=== PATIENT | female | born 1945 | race African-American/Black ===

== ENCOUNTER 2017-08-09 13:37 | Inpatient (IN) | payer MEDICARE, MEDICAID ==
[2017-08-09] MEDS ORDERED: ISOVUE-370 76%-LOCM 1 ML ONE (14:07)
[2017-08-09] MEDS ORDERED: hydrALAZINE 20 MG/ML VIAL ONE ×2 (14:13→17:33)
[2017-08-09] MEDS ORDERED: Ondansetron HCl/PF 4 MG/2 ML Vial ONE (14:13)
[2017-08-09 14:35] LABS: #Eosinphils 0.3 thou/uL (0.0-0.7); #Lymphocytes 3.1 thou/uL (1.20-3.40); #Monocytes 0.7 thou/uL (0.11-0.59); #Neutrophils 4.7 thou/uL (1.40-6.50); %Basophils 0.5 % (0.0-1.0); %Eosinophils 3.3 % (0.0-10.0); %Monocytes 7.9 % (0.0-10.0); Mean Platelet Volume 9.9 fL (7.4-10.4); Red Blood Cell (RBC) Count 4.77 mill/uL (4.20-5.40); White Blood Cell (WBC) Count 8.8 thou/uL (4.8-10.8)
[2017-08-09 14:38] LABS: PTT 25.2 SEC (22.9-36.1); Prothrombin Time 12.7 SEC (12.0-14.7)
[2017-08-09 14:54] LABS: ALT (SGPT) 13 U/L (8-55); AST (SGOT) 24 U/L (5-34); Alkaline Phosphatase 120 U/L (40-150); Anion Gap 11 mmol/L (10-20); BUN (Urea Nitrogen) 10 mg/dL (9.8-20.1); Bilirubin, Total 0.3 mg/dL (0.2-1.2); CK (CPK) 76 U/L (29-168); Calc. Creatinine Clearance 0 mL/min (70-130); Calcium 9.5 mg/dL (7.8-10.44); Carbon Dioxide 29 mmol/L (23-31); Chloride 105 mmol/L (98-107); Estimated GFR-MDRD 72; Globulin 4.1 g/dL (2.4-3.5); Protein, Total 7.5 g/dL (6.0-8.3)
[2017-08-09 14:57] LABS: Troponin I 0.022 ng/mL (< 0.028)
[2017-08-09] MEDS ORDERED: Acetaminophen 500 MG TAB ONE (15:17)
--- NOTE | 2017-08-09 15:31 | RAD ---
PORTABLE CHEST: 08/09/17 HISTORY: Cold and cough. COMPARISON: 12/27/15 study. Heart size is enlarged. Chronic appearing interstitial lung changes are seen. No focal infiltrates. IMPRESSION: Cardiomegaly with some chronic interstitial change. POS: [facility]
--- NOTE | 2017-08-09 16:07 | CT ---
CT ANGIO OF CHEST PERFORMED WITH INTRAVENOUS CONTRAST ENHANCEMENT WITH 3D RECONSTRUCTIONS: 08/09/17 HISTORY: Hemoptysis and dyspnea. COMPARISON: CT abdomen examination of 12/26/14. There is some interstitial change in the lingula along the left heart border which could represent so me developing infiltrate or scar. There is some tiny 3 to 4 mm more peripheral pulmonary nodules whic h are somewhat nonspecific in appearance. No pleural effusions. There is mild mediastinal adenopathy. There are right peritracheal and aorticopulmonary window nodes. Some of the right peritracheal nodes are 9 to 10 mm in short axis dimension. There is some minimal s ubcarinal adenopathy and small bilateral hilar lymph nodes. No significant axillary adenopathy. The thoracic aorta is normal in caliber,. There is good pulmonary artery opacification. There is no C T evidence for pulmonary embolus. The visualized liver parenchyma shows no focal abnormalities. Right and left adrenal glands are leti l in appearance. IMPRESSION: 1. Linear parenchymal change within the lingula. Not definitely seen on the prior CT abdomen exa mination. Suggests possibly some infiltrative change. 2. Mild mediastinal and hilar adenopathy. These could potentially be reactive nodes. This findin g probably warrants followup to exclude entity such as lymphoma. 3. Tiny 3 to 4 mm peripheral pulmonary nodules. This is not a typical appearance of metastatic d isease or multifocal infiltrate. Would suggest three month followup for reassessment of these finding s. 4. Incidental note is made of a small hiatal hernia. POS: [facility]
[2017-08-09] MEDS ORDERED: Furosemide 40 MG/4 ML VIAL ONE (17:01)
[2017-08-09] MEDS ORDERED: Ondansetron ODT 4 MG TAB SL PRN (18:32)
[2017-08-09] MEDS ORDERED: Ondansetron HCl/PF 4 MG/2 ML Vial IVP PRN (18:32)
[2017-08-09] MEDS ORDERED: Sodium Chloride 0.9% 1,000 ML IV SCH ×2 (18:32→18:52)
[2017-08-09] MEDS ORDERED: Bisacodyl 5 MG TAB PO PRN (18:52)
[2017-08-09] MEDS ORDERED: Zolpidem Tartrate 5 MG TAB PO PRN (18:52)
[2017-08-09] MEDS: Famotidine 20 MG TAB PO SCH (20:06)
[2017-08-09] MEDS: Nicotine 21 MG PATCH TD SCH (20:06)
[2017-08-09] MEDS: Acetaminophen 325 MG TAB PO PRN (20:51)
[2017-08-09] MEDS: cloNIDine 0.1 MG TAB PO PRN (20:51)
[2017-08-09 21:42] VITALS: BMI 28.6
[2017-08-10] MEDS ORDERED: cloNIDine 0.1 MG TAB PO SCH (00:01)
[2017-08-10 05:00] LABS: Bilirubin Negative (Negative); Blood, Urine Negative (Negative); Glucose, Urine (Dipstick) Negative (Negative); Ketone, Urine Negative (Negative); Nitrite Negative (Negative); Protein, Urine (Dipstick) 30 mg/dL (Neg-Trace); Urobilinogen 0.2 mg/dL (0.2-1.0)
[2017-08-10 05:08] LABS: Bacteria/HPF None Seen HPF (None Seen); RBC/HPF 0-3 HPF (0-3); Renal Epithelial None Seen HPF (0-3); Squamous Epithelial 0-3 HPF (0-3); Transitional Epithelial NONE SEEN HPF (0-3); WBC/HPF 0-3 HPF (0-3); Yeast-All Forms None Seen HPF (None Seen)
[2017-08-10 05:09] LABS: Hyaline Casts/LPF NONE SEEN LPF (0-3 Hyaline); Oval Fat Bodies/HPF None Seen HPF (None Seen); Sperm/HPF None Seen HPF (None Seen); Trichomonas/HPF None Seen HPF (None Seen)
--- NOTE | 2017-08-10 06:42 | HP ---
HISTORY OF PRESENT ILLNESS: Ms. Saunders is 72-year-old black woman who came to this facility earlier today with complaint of coughing up blood and she claimed that this problem started this morning. S he denies any associated fever. Denies any chest pain. Denies any weight loss. She is being admitt ed for management. PAST MEDICAL HISTORY: Remarkable for hypertension. She denies heart disease, denies previous histor y of chronic lung disease. Denies liver disease. PAST SURGICAL HISTORY: Remarkable for hysterectomy and also she had a right eye surgery as a child d ue to . ALLERGIES: PENICILLIN. SOCIAL HISTORY: She has a [id number] history of cigarette smoking. She denies ETOH abuse. She de nies drug abuse. FAMILY HISTORY: Reviewed and is not contributory. HOME MEDICATIONS: To be identified. REVIEW OF SYSTEMS: Constitutional: She denies any fever. Denies any weakness. HEENT: She denies any headache. Denie s ocular pain. No earache. No rhinorrhea. No sore throat. Neck: No neck pain, no neck stiffness. Cardiovascular: No shortness of breath, no chest pain. Pulmonary: Admits to productive cough wit h bloody sputum. Gastrointestinal: No nausea, no vomiting, no diarrhea, no abdominal pain. Genitou rinary: No dysuria, no hematuria. Endocrinology: No heat or cold intolerance. No polyuria, polydi psia or polyphagia. Musculoskeletal: No arthritis. Skin: No rash, no itching. Allergies: No hay fever. Hematology: No ecchymosis. Lymphatic: No palpable lymphadenopathy. No painful lymphadenop athy. Psychiatric: No anxiety, no depression. Neurologic: No seizure. PHYSICAL EXAMINATION: At the current time. GENERAL: She is alert, oriented, in no distress. VITAL SIGNS: Temperature of 98.2, pulse rate 69, respiratory rate 20, blood pressure 196/69. HEENT: Head is normocephalic and atraumatic. Both of her pupils are equal, reactive. Ears and nose leti l. Oral mucosa is moist. Pharyngeal area is clear. NECK: Supple. There is no distention of the jugular vein. No lymphadenopathy felt. Thyroid gland not palpable. There is no carotid bruit. CHEST: Symmetrical with regular S1, S2. LUNGS: Clear. ABDOMEN: Soft. Bowel sounds are heard. We could not appreciate any organomegaly. There is no foca l area of tenderness. EXTREMITIES: Limbs show no edema. NEUROLOGIC: She moves all extremities. LABORATORY DATA: CBC showed WBC of 8.8, hemoglobin of 14.6, hematocrit of 47, MCV of 98.4, platelet 196. PT was noticed to be 12.7, PTT 25.2. Chemistry and electrolytes show a sodium of 141, potassiu m of 4, chloride 105, CO2 of 29, BUN 10, creatinine 0.93. Glucose 76, calcium 9.5, total bilirubin 0 .3, AST 24, ALT 13, alkaline phosphatase 120. CPK 76, troponin 0.022. BNP 1300 and 73.7, serum prot ein 7.5, albumin 3.4, globulin 4.1. Chest x-ray was reported to show cardiomegaly with some chronic interstitial changes. Chest CT was reported to show linear parenchymal change within the lingula. T here is mild mediastinal and hilar adenopathy and there is a tiny 3-4 mm peripheral pulmonary nodule. ASSESSMENT AND PLAN: This is a 72-year-old black woman with hypertension, chronic smoker, who came i n with bloody sputum. There is no associated chest pain. There is no weight loss. Chest CT shows s mall 3-5 peripheral pulmonary nodule. The patient is being admitted to medical floor. Pulmonary is consulted. Please see orders.
[2017-08-10 07:51] LABS: Hematocrit 39.5 % (36.0-47.0); Mean Platelet Volume 10.1 fL (7.4-10.4); Neutrophil 61 % (42-75); White Blood Cell (WBC) Count 8.5 thou/uL (4.8-10.8)
[2017-08-10] MEDS: Famotidine 20 MG TAB PO SCH ×2 (07:52→20:28)
[2017-08-10] MEDS ORDERED: Mag-Al 1200 mg/1200 mg/30 ML UDCUP PO PRN (07:55)
[2017-08-10] MEDS ORDERED: Loratadine 10 MG TAB PO PRN (07:55)
[2017-08-10] MEDS ORDERED: hydrALAZINE 20 MG/ML VIAL SLOW IVP PRN (07:55)
[2017-08-10] MEDS ORDERED: Milk Of Magnesia 30 ML UDCUP PO PRN (07:55)
[2017-08-10] MEDS ORDERED: Ondansetron HCl/PF 4 MG/2 ML Vial IVP PRN (07:55)
[2017-08-10] MEDS ORDERED: Benzonatate 100 MG CAP PO PRN (07:55)
[2017-08-10] MEDS ORDERED: HYDROcodone/Acetaminophen 5/325 mg Tablet PO PRN (07:55)
[2017-08-10] MEDS ORDERED: Diabetic Tussin 200 MG/10 ML UDCUP PO PRN (07:55)
[2017-08-10] MEDS ORDERED: Artificial Tears 18 DROP/0.9 ML EA EYE PRN (07:55)
[2017-08-10] MEDS ORDERED: Eucerin (Mineral Oil/Petrolatum,White) 30 gm Jar TOP PRN (07:55)
[2017-08-10] MEDS ORDERED: Sodium Chloride 0.65% Nasal 44 ML BOT EA NARE PRN (07:55)
[2017-08-10] MEDS ORDERED: Ondansetron ODT 4 MG TAB PO PRN (07:55)
[2017-08-10] MEDS ORDERED: Loperamide HCl 2 MG CAP PO PRN (07:55)
[2017-08-10] MEDS: Amlodipine 10 MG TAB PO SCH (08:53)
[2017-08-10] MEDS: Hydrochlorothiazide 25 MG TAB PO SCH (08:53)
[2017-08-10] MEDS: buPROPion HCl 75 MG TAB PO SCH ×2 (08:53→20:27)
[2017-08-10] MEDS: Valsartan 80 MG TAB PO SCH (08:54)
--- NOTE | 2017-08-10 10:13 | PDOC.PN ---
- Subjective Encounter Start Date: 08/10/17 Encounter Start Time: 07:30 -: old records requested/rev Patient seen and examined. No new complaints. No overnight events, no fever, has cough, no hemoptysis - Objective Resuscitation Status: Resuscitation Status FULL:Full Resuscitation MAR Reviewed: Yes Vital Signs & Weight: Vital Signs (12 hours) Temp Pulse Resp BP BP Pulse Ox 08/10/17 08:53 55 L 08/10/17 07:49 98.3 F 55 L 16 165/73 H 95 08/10/17 04:00 98.4 F 64 18 173/76 H 94 L 08/10/17 00:28 182/76 H 08/09/17 23:23 98.2 F 71 20 182/76 H 93 L Weight Weight 6.286 oz I&O: 08/09/17 08/10/17 08/11/17 06:59 06:59 06:59 Intake Total 720 Output Total 600 Balance 120 Result Diagrams: 08/10/17 04:51 08/09/17 14:19 Radiology Reviewed by me: Yes (CTA) EKG Reviewed by me: Yes (NSR) Phys Exam - Physical Examination Constitutional: NAD HEENT: PERRLA, moist MMs, sclera anicteric Neck: no JVD, supple Respiratory: no wheezing, no rales, no rhonchi Cardiovascular: RRR, no significant murmur, no rub Gastrointestinal: soft, non-tender, no distention, positive bowel sounds Musculoskeletal: no edema, pulses present Neurological: non-focal, normal sensation, moves all 4 limbs Psychiatric: normal affect, A&O x 3 Skin: no rash, normal turgor Dx/Plan (1) Elevated brain natriuretic peptide (BNP) level Code(s): R79.89 - OTHER SPECIFIED ABNORMAL FINDINGS OF BLOOD CHEMISTRY Status : Acute (2) Hemoptysis Code(s): R04.2 - HEMOPTYSIS Status: Acute (3) Hilar lymphadenopathy Code(s): R59.0 - LOCALIZED ENLARGED LYMPH NODES Status: Acute (4) Lingular pneumonia Code(s): J18.9 - PNEUMONIA, UNSPECIFIED ORGANISM Status: Acute (5) Mediastinal lymphadenopathy Code(s): R59.0 - LOCALIZED ENLARGED LYMPH NODES Status: Acute (6) Pulmonary nodule Code(s): R91.1 - SOLITARY PULMONARY NODULE Status: Acute (7) Anxiety and depression Code(s): F41.8 - OTHER SPECIFIED ANXIETY DISORDERS Status: Chronic (8) Hypertension Code(s): I10 - ESSENTIAL (PRIMARY) HYPERTENSION Status: Chronic (9) Tobacco abuse Code(s): Z72.0 - TOBACCO USE Status: Chronic - Plan cont current plan of care, continue antibiotics * will add levaquin daily * pt's current presentation is likley due to pneumonia and or bornchitis * will need repeat imaging after discharge * pulmonary consulted * counselled to avoid smoking * medication reviewed as below * symptomatic treatment * will send flow cytometry and LDH tomorrow. * will get echo for high bnp * home medication reconciled Review of Systems - Review of Systems Constitutional: negative: Fever, Chills, Sweats, Weakness, Malaise, Other Eyes: negative: Pain, Vision Change, Conjunctivae Inflammation, Eyelid Inflammation, Redness, Other ENT: negative: Ear Pain, Ear Discharge, Nose Pain, Nose Discharge, Nose Congestion, Mouth Pain, Mouth Swelling, Throat Pain, Throat Swelling, Other Respiratory: Cough, Sputum. negative: Dry, Shortness of Breath, Hemoptysis, SOB with Excertion, Pleuritic Pain, Wheezing Cardiovascular: negative: Chest Pain, Palpitations, Orthopnea, Paroxysmal Noc. Dyspnea, Edema, Light Headedness, Other Gastrointestinal: negative: Nausea, Vomiting, Abdominal Pain, Diarrhea, Constipation, Melena, Hematochezia, Other Genitourinary: negative: Dysuria, Frequency, Incontinence, Hematuria, Retention , Other Musculoskeletal: negative: Neck Pain, Shoulder Pain, Arm Pain, Back Pain, Hand Pain, Leg Pain, Foot Pain, Other Skin: negative: Rash, Lesions, Mike, Bruising, Other - Medications/Allergies Allergies/Adverse Reactions: Allergies Allergy/AdvReac Type Severity Reaction Status Date / Time Penicillins Allergy Verified 08/10/17 03:26 Medications: Current Medications Acetaminophen (Tylenol) 650 mg PO Q4H PRN PRN Reason: Headache/Fever or Pain Last Admin: 08/09/17 20:51 Dose: 650 mg Hydrocodone Bitart/Acetaminophen ([place] 5/325) 1 tab PO Q4H PRN PRN Reason: Moderate Pain (4-6) Al Hydroxide/Mg Hydroxide (Maalox) 15 ml PO Q4H PRN PRN Reason: Heartburn or Indigestion Amlodipine Besylate (Norvasc) 10 mg PO DAILY [facility] Last Admin: 08/10/17 08:53 Dose: 10 mg Artificial Tears (Tears Naturale) 0 drop EA EYE PRN PRN PRN Reason: Dry Eyes Benzonatate (Tessalon) 100 mg PO Q4H PRN PRN Reason: Cough Bisacodyl (Dulcolax) 10 mg PO DAILYPRN PRN PRN Reason: Constipation Bupropion HCl (Wellbutrin) 75 mg PO BID [facility] Last Admin: 08/10/17 08:53 Dose: 75 mg Clonidine (Catapres) 0.1 mg PO Q6H PRN PRN Reason: SBP GREATER THAN 160 Last Admin: 08/09/17 20:51 Dose: 0.1 mg Famotidine (Pepcid) 20 mg PO BID [facility] Last Admin: 08/10/17 07:52 Dose: 20 mg Guaifenesin (Robitussin Sf) 200 mg PO Q4H PRN PRN Reason: Cough Hydralazine HCl (Apresoline) 10 mg SLOW IVP Q4H PRN PRN Reason: Systolic BP > 180 Hydrochlorothiazide (Hydrochlorothiazide) 25 mg PO DAILY [facility] Last Admin: 08/10/17 08:53 Dose: 25 mg Levofloxacin 500 mg/ Device 100 mls @ 100 mls/hr IVPB 0800 [facility] Last Admin: 08/10/17 08:52 Dose: 100 mls Loperamide HCl (Imodium) 2 mg PO PRN PRN PRN Reason: Diarrhea/Loose Stools Loratadine (Claritin) 10 mg PO DAILYPRN PRN PRN Reason: Sinus Symptoms Magnesium Hydroxide (Milk Of Magnesium) 30 ml PO DAILYPRN PRN PRN Reason: Constipation Metoprolol Succinate (Toprol Xl) 50 mg PO BID [facility] Last Admin: 08/10/17 08:53 Dose: 50 mg Mineral Oil/White Petrolatum (Eucerin Cream) 0 gm TOP BIDPRN PRN PRN Reason: Dry Skin Nicotine (Nicoderm Patch) 21 mg TD Q24HR [facility] Last Admin: 08/09/17 20:06 Dose: 21 mg Ondansetron HCl (Zofran Odt) 4 mg PO Q6H PRN PRN Reason: Nausea/Vomiting Ondansetron HCl (Zofran) 4 mg IVP Q6H PRN PRN Reason: Nausea/Vomiting Sodium Chloride ([place] Nasal [place] 0.65%) 0 ml EA NARE QIDPRN PRN PRN Reason: Nasal Congestion Valsartan (Diovan) 320 mg PO DAILY [facility] Last Admin: 08/10/17 08:54 Dose: 320 mg Zolpidem Tartrate (Ambien) 5 mg PO HSPRN PRN PRN Reason: Insomnia
--- NOTE | 2017-08-10 18:16 | CON ---
DATE OF CONSULTATION: 08/10/2017 Zena Saunders is a 72-year-old female who seeks care at the [facility], presented yesterday wi th a couple of days history of cold associated with some blood-tinged sputum. She says that total am ount of blood that she has coughed up appears to be about 3 to 5 tablespoon. She has been smoking half pack a day for 50 years with previous history of pneumonia. No history of TB or asthma. On most days, she is able to walk several blocks without getting markedly short of ant[place] ath. PAST MEDICAL HISTORY: Pertinent for hypertension. PAST SURGICAL HISTORY: Includes hysterectomy. MEDICATIONS FROM HOME: Includes Wellbutrin 75, hydrochlorothiazide, metoprolol 50, amlodipine 10, va lsartan. ALLERGIES: PENICILLIN. SOCIAL HISTORY: Housewife. REVIEW OF SYSTEMS: 10-point negative. PHYSICAL EXAMINATION: VITAL SIGNS: Pulse 55, temperature 98, blood pressure 165/73. CHEST: No crackles or wheezing. CARDIAC: Normal S1, S2. LABORATORY DATA: Chest x-ray was reviewed based on bibasilar scarring, particularly in the lingula w hich has been present at least over a year, last x-ray taken in 2016. CAT scan of the chest was done which shows nonspecific lymph nodes, once again mainly what I see is scarring, maybe bronchiectatic changes in the lingual area. Mild hilar adenopathy of unknown significance, small pulmonary nodule, difficult to even assess, 3 mm. IMPRESSION: 1. Hemoptysis secondary to bronchitis, tobacco abuse, abdominal CT of the chest, lymph nodes of unkn own significance, too small to make an assumption. 3. Probably bronchiectasis in the lingula. 4. Hypertension. PLAN: From the pulmonary stand point of view, at this stage, empiric antibiotics Incidentally, BNP was markedly elevated at 1373. Will get an echo to assess LV function. Unless hemoptysis is signifi cant or persistent, no further workup. If it persists, we will perform a diagnostic bronchoscopy.
[2017-08-10] MEDS: Nicotine 21 MG PATCH TD SCH (18:35)
[2017-08-10] MEDS: cloNIDine 0.1 MG TAB PO PRN (20:33)
[2017-08-10] MEDS: Acetaminophen 325 MG TAB PO PRN (21:35)
[2017-08-10] MEDS ORDERED: Nitroglycerin 2% Ointment 1 INCH/1 GM Packet TOP SCH (23:59)
[2017-08-11] MEDS ORDERED: Nitroglycerin 2% Ointment 1 INCH/1 GM Packet TOP SCH (06:00)
[2017-08-11] MEDS: Valsartan 80 MG TAB PO SCH (08:55)
[2017-08-11] MEDS: buPROPion HCl 75 MG TAB PO SCH (08:55)
[2017-08-11] MEDS: Amlodipine 10 MG TAB PO SCH (08:55)
[2017-08-11] MEDS: Famotidine 20 MG TAB PO SCH (08:55)
[2017-08-11] MEDS: Hydrochlorothiazide 25 MG TAB PO SCH (08:55)
--- NOTE | 2017-08-11 10:09 | PDOC.PN ---
- Subjective Encounter Start Date: 08/11/17 Encounter Start Time: 08:00 Patient seen and examined. No new complaints. No overnight events, today her BP is high - Objective Resuscitation Status: Resuscitation Status FULL:Full Resuscitation MAR Reviewed: Yes Vital Signs & Weight: Vital Signs (12 hours) Temp Pulse Resp BP BP Pulse Ox 08/11/17 09:27 182/79 H 08/11/17 08:55 51 L 195/91 H 08/11/17 08:50 98.7 F 51 L 18 192/89 H 96 08/11/17 04:00 97.4 F L 53 L 18 172/74 H 94 L 08/10/17 23:43 46 L 178/77 H Weight Weight 178 lb 12.8 oz I&O: 08/10/17 08/11/17 08/12/17 06:59 06:59 06:59 Intake Total 720 1080 Output Total 600 1200 Balance 120 -120 Result Diagrams: 08/10/17 04:51 08/09/17 14:19 Radiology Reviewed by me: Yes (echo) EKG Reviewed by me: Yes (sinus bradycardia) Phys Exam - Physical Examination Constitutional: NAD HEENT: PERRLA, moist MMs, sclera anicteric Neck: no JVD, supple Respiratory: no wheezing, no rales, no rhonchi Cardiovascular: RRR, no significant murmur, no rub Gastrointestinal: soft, non-tender, no distention, positive bowel sounds Musculoskeletal: no edema, pulses present Neurological: non-focal, normal sensation, moves all 4 limbs Psychiatric: normal affect, A&O x 3 Skin: no rash, normal turgor Dx/Plan (1) Elevated brain natriuretic peptide (BNP) level Code(s): R79.89 - OTHER SPECIFIED ABNORMAL FINDINGS OF BLOOD CHEMISTRY Status : Acute (2) Hemoptysis Code(s): R04.2 - HEMOPTYSIS Status: Acute (3) Hilar lymphadenopathy Code(s): R59.0 - LOCALIZED ENLARGED LYMPH NODES Status: Acute (4) Lingular pneumonia Code(s): J18.9 - PNEUMONIA, UNSPECIFIED ORGANISM Status: Acute (5) Mediastinal lymphadenopathy Code(s): R59.0 - LOCALIZED ENLARGED LYMPH NODES Status: Acute (6) Pulmonary nodule Code(s): R91.1 - SOLITARY PULMONARY NODULE Status: Acute (7) Anxiety and depression Code(s): F41.8 - OTHER SPECIFIED ANXIETY DISORDERS Status: Chronic (8) Hypertension Code(s): I10 - ESSENTIAL (PRIMARY) HYPERTENSION Status: Chronic (9) Tobacco abuse Code(s): Z72.0 - TOBACCO USE Status: Chronic - Plan cont current plan of care, continue antibiotics * will add hydralazine 25 mg po qid * Metoprolol discontinued for bradycardia * will change levaquin PO * if BP still not well controlled then amlodipine can be changed to procardia * medication reviewed as below * symptomatic treatment * echo is normal. * will adjust BP meds today Review of Systems - Review of Systems ENT: negative: Ear Pain, Ear Discharge, Nose Pain, Nose Discharge, Nose Congestion, Mouth Pain, Mouth Swelling, Throat Pain, Throat Swelling, Other Respiratory: negative: Cough, Dry, Shortness of Breath, Hemoptysis, SOB with Excertion, Pleuritic Pain, Sputum, Wheezing Cardiovascular: negative: Chest Pain, Palpitations, Orthopnea, Paroxysmal Noc. Dyspnea, Edema, Light Headedness, Other Gastrointestinal: negative: Nausea, Vomiting, Abdominal Pain, Diarrhea, Constipation, Melena, Hematochezia, Other Genitourinary: negative: Dysuria, Frequency, Incontinence, Hematuria, Retention , Other Musculoskeletal: negative: Neck Pain, Shoulder Pain, Arm Pain, Back Pain, Hand Pain, Leg Pain, Foot Pain, Other Skin: negative: Rash, Lesions, Mike, Bruising, Other - Medications/Allergies Allergies/Adverse Reactions: Allergies Allergy/AdvReac Type Severity Reaction Status Date / Time Penicillins Allergy Verified 08/10/17 03:26 Medications: Current Medications Acetaminophen (Tylenol) 650 mg PO Q4H PRN PRN Reason: Headache/Fever or Pain Last Admin: 08/10/17 21:35 Dose: 650 mg Hydrocodone Bitart/Acetaminophen ([place] 5/325) 1 tab PO Q4H PRN PRN Reason: Moderate Pain (4-6) Al Hydroxide/Mg Hydroxide (Maalox) 15 ml PO Q4H PRN PRN Reason: Heartburn or Indigestion Amlodipine Besylate (Norvasc) 10 mg PO DAILY [facility] Last Admin: 08/11/17 08:55 Dose: 10 mg Artificial Tears (Tears Naturale) 0 drop EA EYE PRN PRN PRN Reason: Dry Eyes Benzonatate (Tessalon) 100 mg PO Q4H PRN PRN Reason: Cough Bisacodyl (Dulcolax) 10 mg PO DAILYPRN PRN PRN Reason: Constipation Bupropion HCl (Wellbutrin) 75 mg PO BID [facility] Last Admin: 08/11/17 08:55 Dose: 75 mg Clonidine (Catapres) 0.1 mg PO Q6H PRN PRN Reason: SBP GREATER THAN 160 Last Admin: 08/10/17 20:33 Dose: 0.1 mg Famotidine (Pepcid) 20 mg PO BID [facility] Last Admin: 08/11/17 08:55 Dose: 20 mg Guaifenesin (Robitussin Sf) 200 mg PO Q4H PRN PRN Reason: Cough Hydralazine HCl (Apresoline) 10 mg SLOW IVP Q4H PRN PRN Reason: Systolic BP > 180 Hydrochlorothiazide (Hydrochlorothiazide) 25 mg PO DAILY [facility] Last Admin: 08/11/17 08:55 Dose: 25 mg Levofloxacin (Levaquin) 500 mg PO 0600 [facility] Stop: 08/16/17 06:01 Last Admin: 08/11/17 05:17 Dose: 500 mg Loperamide HCl (Imodium) 2 mg PO PRN PRN PRN Reason: Diarrhea/Loose Stools Loratadine (Claritin) 10 mg PO DAILYPRN PRN PRN Reason: Sinus Symptoms Magnesium Hydroxide (Milk Of Magnesium) 30 ml PO DAILYPRN PRN PRN Reason: Constipation Mineral Oil/White Petrolatum (Eucerin Cream) 0 gm TOP BIDPRN PRN PRN Reason: Dry Skin Nicotine (Nicoderm Patch) 21 mg TD Q24HR [facility] Last Admin: 08/10/17 18:35 Dose: 21 mg Nitroglycerin (Nitro-Bid 2% Ointment) 1 inch TOP Q6HR [facility] Last Admin: 08/11/17 05:17 Dose: 1 inch Ondansetron HCl (Zofran Odt) 4 mg PO Q6H PRN PRN Reason: Nausea/Vomiting Ondansetron HCl (Zofran) 4 mg IVP Q6H PRN PRN Reason: Nausea/Vomiting Sodium Chloride ([place] Nasal [place] 0.65%) 0 ml EA NARE QIDPRN PRN PRN Reason: Nasal Congestion Valsartan (Diovan) 320 mg PO DAILY [facility] Last Admin: 08/11/17 08:55 Dose: 320 mg Zolpidem Tartrate (Ambien) 5 mg PO HSPRN PRN PRN Reason: Insomnia
--- NOTE | 2017-08-11 10:51 | PQF ---
CLINICAL DOCUMENTATION IMPROVEMENT CLARIFICATION FORM: ICD-10 Updated PLEASE DO AN ADDENDUM TO THE PROGRESS NOTE WITH ANY DOCUMENTATION UPDATES OR ADDITIONS AND CARRY THROUGH TO DC SUMMARY. THANK YOU. DATE: 08/11/17 ATTN : DR. BARRIOS Please exercise your independent, professional judgment in responding to the clarification form. Clinical indicators are provided on the bottom of this form for your review Please check appropriate box(s): [ ] Bronchitis [ ] Bronchiectasis [ x ] Simple Pneumonia (community acquired) [ x ] Other diagnosis _lingular pneumonia [ ] Unable to determine In addition, please specify: Present on Admission (POA): [ x ] Yes [ ] No [ ] Unable to determine For continuity of documentation, please document condition throughout progress notes and discharge summary. Thank You. CLINICAL INDICATORS - SIGNS / SYMPTOMS / LABS H&P 08/10: "LINGULAR PNEUMONIA" CONSULTATION NOTE 08/10: "HEMOPTYSIS SECONDARY TO BRONCHITIS" "PROBABLY BRONCHIECTASIS IN THE LINGULA" RISKS: CHRONIC SMOKING TREATMENT: PULMONARY CONSULT CHEST XRAY CT OF CHEST PO LEVAQUIN (This form is maintained as a part of the permanent medical record) 2014 [email or web address]. All Rights Reserved [email or web address] Office: [phone] [facility]
--- NOTE | 2017-08-11 10:53 | PRG ---
DATE OF SERVICE: 08/11/2017 SUBJECTIVE: This morning the patient is better. No further hemoptysis. PHYSICAL EXAMINATION: VITAL SIGNS: Blood pressure 128/79, pulse 59, temperature 98, afebrile. CHEST: Chest reveals decreased breath sounds without any wheezing. CARDIAC: Normal S1, S2. ABDOMEN: Soft, no masses. IMPRESSION: 1. Hemoptysis. 2. Bronchitis. 3. Abnormal chest x-ray. PLAN: She can be discharged home with empiric antibiotics. She can follow with her primary care germaine velez. She is to refrain from smoking. She can see me in the office if she wants to in 2 weeks.
--- NOTE | 2017-08-11 11:41 | DIS ---
DATE OF ADMISSION: 08/09/2017 DATE OF DISCHARGE: 08/11/2017 PRIMARY CARE PHYSICIAN: Xi Tiwari. DISCHARGE DISPOSITION: Home. PRIMARY DISCHARGE DIAGNOSES: 1. Hemoptysis, likely due to lingular pneumonia. 2. Reactive hilar and mediastinal lymphadenopathy. 3. Pulmonary nodule. 4. Elevated BNP. SECONDARY DISCHARGE DIAGNOSES: Hypertension, anxiety and depression, tobacco abuse disorder. PRIMARY PROCEDURE/OPERATION: None. RADIOLOGICAL INVESTIGATION: Chest x-ray on admission showed cardiomegaly and interstitial changes. CT angiography was negative for PE, but it did show lingular infiltration and mild mediastinal and hi lar lymphadenopathy and 3-4 mm pulmonary nodule. Echocardiography was normal. SIGNIFICANT LABORATORY DATA: WBC 8.5, hemoglobin 12.5, platelets 179, INR 0.9. Sodium 141, creatini ne 0.93, LFT normal. Electrolytes normal. Cardiac enzymes negative. BNP 1373. Urinalysis normal. DISCHARGE MEDICATIONS: Levofloxacin 500 mg p.o. daily for 7 days, hydralazine 25 mg p.o. q.i.d., aml odipine 10 mg p.o. daily, Wellbutrin 75 mg p.o. b.i.d., hydrochlorothiazide 25 mg p.o. daily, valsart an 320 mg p.o. daily. CONTRAINDICATIONS: None. CODE STATUS: FULL CODE. INPATIENT GOVERNMENT PROFESSOR: Dr. Diaz. TEST RESULTS PENDING ON DISCHARGE: None. ALLERGIES: PENICILLIN. DISCHARGE PLAN: Post hospital, patient is advised to follow up with Dr. Diaz as instructed as well a s primary care physician. HOSPITAL COURSE: A 72-year-old female who was admitted by Dr. Toni Luu. Please see his H&P fo r further details. The patient had an episode of hemoptysis. The patient was also having cough, shelly rtness of breath, and subjective fever. The patient had chest x-ray which was unremarkable. She had CT angio which showed no evidence of PE, but it did show infiltration in lingula and also found with nonspecific hilar and mediastinal lymphadenopathy and pulmonary nodule. The patient was admitted to telemetry floor. Pulmonary group was consulted and they recommended that at this point, no further evaluation required. She was treated with levofloxacin while in hospital and on discharge we changed to p.o. Levaquin for another 5-7 days. During this hospital, patient had elevated BNP and that is why we did echocardiography, but echocardi ography came back normal. Patient does not have any symptoms of CHF at this point. The patient also had sinus bradycardia and that is why we discontinued metoprolol on her regimen and instead we start ed hydralazine for blood pressure control. I advised this patient to follow up with primary care germaine velez for further adjustment of blood pressure medication. While in hospital, we also provided coun seling to avoid smoking. The patient is seen and examined at bedside today. Please see my progress note from today for furthe r details. Overall, the patient is medically stable for discharge and Pulmonary cleared her for disc harge and she will follow up with them as an outpatient basis.
[2017-08-11] MEDS: hydrALAZINE 25 MG TAB PO SCH ×2 (11:50→16:51)
[2017-08-11] MEDS: cloNIDine 0.1 MG TAB PO PRN (15:30)
[2017-08-11 15:59] VITALS: TEMP 97.5
[2017-08-11 17:07] VITALS: BP 150/90
== END 2017-08-11 18:08 | disposition home or self-care (01) | DRG 194 ==
LOC: ERS 13:37 → 2NO 16:40
PROVIDERS: ADMIT Hospitalist; ATTEND Hospitalist
DX: J18.9 Pneumonia, unspecified organism (principal); R04.2 Hemoptysis; R00.1 Bradycardia, unspecified; R59.0 Localized enlarged lymph nodes; R91.1 Solitary pulmonary nodule; F17.210 Nicotine dependence, cigarettes, uncomplicated; I10 Essential (primary) hypertension; F41.9 Anxiety disorder, unspecified; F32.9 Major depressive disorder, single episode, unspecified; R79.89 Other specified abnormal findings of blood chemistry
CPT/HCPCS: 36415; 71010; 71275; 80053; 81001; 82550; 82553; 83615; 83880; 84484; 85007; 85025; 85027; 85610; 85730; 88184; 93005; 93306; 94640; 96374; 96375; 96376; J0360; J1940; J1956; J2405; Q0162

== ENCOUNTER 2017-11-22 15:21 | Emergency (ER) | payer MEDICAID, MEDICARE ==
--- NOTE | 2017-11-22 16:22 | RAD ---
PA AND LATERAL CHEST X-RAY 11/22/17 HISTORY: Cough and fever and chills for one week. COMPARISON: 08/09/17. FINDINGS: The cardiac silhouette is stable in size and borderline enlarged. Pulmonary vasculature is also at th e upper limits of normal. There is interstitial and patchy density seen at each lung base worrisome f or bibasilar areas of pneumonia. No pleural effusion is seen. Vascular calcifications are seen in the thoracic aorta. No other interval change. IMPRESSION: Increased bibasilar patchy and interstitial densities at the medial aspect of each lower lobe worriso me for bibasilar areas of pneumonia. Followup to complete resolution is recommended. POS: TASNE[facility]
[2017-11-22] MEDS ORDERED: Acetaminophen 500 MG TAB ONE (18:31)
== END 2017-11-22 18:34 | disposition home or self-care (01) ==
LOC: ERS 15:21
DX: J18.9 Pneumonia, unspecified organism (principal); I10 Essential (primary) hypertension
CPT/HCPCS: 71046; 94640; J7620

== ENCOUNTER 2019-05-11 09:44 | Emergency (ER) | payer MEDICARE ==
[2019-05-11] MEDS ORDERED: Ondansetron ODT 4 MG TAB ONE ×2 (10:29→10:57)
[2019-05-11] MEDS ORDERED: Dicyclomine 20 MG TAB ONE ×2 (10:29→10:57)
--- NOTE | 2019-05-11 10:56 | RAD ---
XR Chest 1 View Portable History: Chest pain Comparison: Radiograph March 04, 2019 Findings: Heart size is enlarged. Mild increased peripheral interstitial markings of the lungs. No pn eumothorax. No effusions. No acute osseous abnormality. Impression: Chronic findings. No acute intrathoracic abnormality.
--- NOTE | 2019-05-11 11:08 | ULT ---
US Gallbladder RUQ History: Right upper quadrant pain Comparison: None Findings: Real-time grayscale and color evaluation of the right upper quadrant of the abdomen was per formed. Visualized portion of the pancreas, aorta, and IVC are unremarkable. Hepatic echotexture is normal. Portal vein is patent with antegrade flow. Common bile duct measures 4 mm, normal. Gallbladder is nor mal. Right kidney measures 8.7 x 3.8 x 4.4 cm without mass, hydronephrosis, or abnormal calcifications. Impression: Unremarkable right upper quadrant ultrasound. Normal gallbladder.
[2019-05-11 11:20] LABS: #Eosinphils 0.3 thou/uL (0.0-0.7); #Lymphocytes 2.5 thou/uL (1.20-3.40); #Monocytes 0.8 thou/uL (0.11-0.59); #Neutrophils 3.8 thou/uL (1.40-6.50); %Basophils 0.6 % (0.0-1.0); %Eosinophils 4.3 % (0.0-10.0); %Lymphocytes 33.3 % (21.0-51.0); %Monocytes 10.2 % (0.0-10.0); %Neutrophils 51.6 % (42.0-75.0); Hemoglobin 13.3 g/dL (12.0-16.0); Mean Corpuscular HGB CONC 31.7 g/dL (32.0-36.0); Mean Corpuscular Hemoglobin 29.8 pg (27.0-31.0); Mean Corpuscular Volume 94.1 fL (78.0-98.0); Mean Platelet Volume 11.6 fL (7.4-10.4); Platelet Count 155 thou/uL (130-400); RBC Distribution Width 14.4 % (11.5-14.5); Red Blood Cell (RBC) Count 4.46 mill/uL (4.20-5.40); White Blood Cell (WBC) Count 7.4 thou/uL (4.8-10.8)
[2019-05-11 12:36] LABS: ALT (SGPT) 12 U/L (8-55); AST (SGOT) 18 U/L (5-34); Albumin 3.6 g/dL (3.4-4.8); Alkaline Phosphatase 122 U/L (40-150); Anion Gap 13 mmol/L (10-20); BUN (Urea Nitrogen) 17 mg/dL (9.8-20.1); Bilirubin, Total 0.3 mg/dL (0.2-1.2); Calc. Creatinine Clearance 0 mL/min (70-130); Calcium 9.3 mg/dL (7.8-10.44); Carbon Dioxide 26 mmol/L (23-31); Chloride 108 mmol/L (98-107); Estimated GFR-MDRD 66; Globulin 3.2 g/dL (2.4-3.5); Glucose 94 mg/dL (83-110); Lipase 20 U/L (8-78); Potassium 3.6 mmol/L (3.5-5.1); Protein, Total 6.8 g/dL (6.0-8.3); Sodium 143 mmol/L (136-145)
[2019-05-11 14:09] LABS: Bilirubin Negative (Negative); Blood, Urine Negative (Negative); Clarity Clear (Clear); Glucose, Urine (Dipstick) Normal (Negative); Leukocyte Negative Leu/uL (Negative); Nitrite Negative (Negative); Protein, Urine (Dipstick) Negative (Neg-Trace); Urobilinogen Normal mg/dL (Less than 2)
--- NOTE | 2019-05-11 14:19 | CT ---
CT OF THE ABDOMEN AND PELVIS WITHOUT IV CONTRAST INDICATION: Right-sided abdominal pain COMPARISON: December 27, 2015 FINDINGS: The lack of IV contrast limits evaluation of the solid organs of the abdomen and pelvis. ABDOMEN: Lung bases: Clear Liver: No focal lesion. Gallbladder: Normal appearing. Pancreas: Normal. Adrenal glands: Normal. Spleen: Normal. Kidneys: Normal. Retroperitoneum of the upper abdomen: No pathologically enlarged lymph nodes are evident. There are m oderate calcific patient's involving the abdominal pelvic vasculature. Additional findings: None. Pelvis: Small and large bowel: Normal Bladder: Normal. Rectal and perirectal soft tissues:Normal. Reproductive structures: Normal. Free fluid in pelvis: No free fluid is evident. Lymphadenopathy pelvis: No lymphadenopathy is evident. Osseous structures: No acute osseous abnormality. No destructive osteolytic or osteoblastic lesion i s identified. There is scattered degenerative and osteoarthritic changes. IMPRESSION: 1. No acute abnormality.
[2019-05-11] MEDS ORDERED: hydrALAZINE 20 MG/ML VIAL ONE (14:27)
== END 2019-05-11 15:07 | disposition home or self-care (01) ==
LOC: ERS 09:44
DX: R10.11 Right upper quadrant pain (principal); I10 Essential (primary) hypertension; F17.210 Nicotine dependence, cigarettes, uncomplicated; Z79.899 Other long term (current) drug therapy
CPT/HCPCS: 36415; 71045; 74176; 76705; 80053; 81003; 83690; 84484; 85025; 93005; 96374; J0360; Q0162

== ENCOUNTER 2019-07-21 13:02 | Outpatient (CLI) | payer MEDICARE ==
--- NOTE | 2019-07-21 14:54 | MMO ---
Bilateral MAMMO Bilat Screen [facility]. CLINICAL HISTORY: Patient is 74 years old and is seen for screening. The patient has no family history of breast cancer. The patient has no personal history of cancer. VIEWS: The views performed were: bilateral craniocaudal with tomosynthesis and bilateral mediolateral oblique with tomosynthesis. FILMS COMPARED: The present examination has been compared to prior imaging studies performed at [facility] on 03/15/2011, 12/03/2012, 12/06/2013 and 12/07/2014. This study has been interpreted with the assistance of computer-aided detection. MAMMOGRAM FINDINGS: There are scattered fibroglandular densities. There are no suspicious masses, suspicious calcifications, or new areas of architectural distortion. IMPRESSION: THERE IS NO MAMMOGRAPHIC EVIDENCE OF MALIGNANCY. A ROUTINE FOLLOW-UP MAMMOGRAM IN 1 YEAR IS RECOMMENDED. THE RESULTS OF THIS EXAM WERE SENT TO THE PATIENT. ACR BI-RADS Category 1 - Negative MAMMOGRAPHY NOTE: 1. A negative mammogram report should not delay a biopsy if a dominant of clinically suspicious mass is present. 2. Approximately 10% to 15% of breast cancers are not detected by mammography. 3. Adenosis and dense breasts may obscure an underlying neoplasm. Reported by: NAOMI LAURA MD Electonically Signed: [id number]
== END 2019-07-21 13:03 | disposition home or self-care (01) ==
LOC: BICMAMMO 13:02
PROVIDERS: ATTEND Family Medicine
DX: Z12.31 Encounter for screening mammogram for malignant neoplasm of breast (principal)
CPT/HCPCS: 77063; 77067

== ENCOUNTER 2019-10-30 00:08 | Emergency (ER) | payer MEDICARE, MEDICAID ==
[2019-10-30] MEDS ORDERED: Acetaminophen 325 MG TAB ONE ×2 (00:55→01:02)
[2019-10-30] MEDS ORDERED: Dexamethasone 4 MG TAB ONE ×2 (00:55→01:02)
== END 2019-10-30 01:27 | disposition home or self-care (01) ==
LOC: ERS 00:08
DX: J02.8 Acute pharyngitis due to other specified organisms (principal); B97.89 Other viral agents as the cause of diseases classified elsewhere; F17.210 Nicotine dependence, cigarettes, uncomplicated; I10 Essential (primary) hypertension; Z79.899 Other long term (current) drug therapy
CPT/HCPCS: 87081; 87430; 99283; J8540

== ENCOUNTER 2020-09-29 09:49 | Outpatient (CLI) | payer MEDICARE, MEDICAID ==
--- NOTE | 2020-09-29 10:20 | BD ---
EXAM: Bone densitometry using DEXA HISTORY: 75 yo female. Screening for postmenopausal osteoporosis FINDINGS: L1--bone mineral density 0.938 g/sq cm; T score -0.5 ; Z score 0.9 L2--bone mineral density 0.968 g/sq cm; T score -0.5 ; Z score 1.0 L3--bone mineral density 0.984 g/sq cm; T score -0.9 ; Z score 0.8 L4--bone mineral density 0.997 g/sq cm; T score -0.6 ; Z score 1.1 Total L1-L4--bone mineral density 0.973 g/sq cm; T score -0.7 ; Z score 0.9 Left femoral neck--bone mineral density0.703; T score -1.3 ; Z score -0.2 Total proximal left femur--bone mineral density 0.840; T score -0.8 ; Z score 0.0 The 10 year fracture risk for a major osteoporotic fracture is 4.6% and for a hip fracture is 1.1%. IMPRESSION: Osteopenia
== END 2020-09-29 09:50 | disposition home or self-care (01) ==
LOC: BICMAMMO 09:49
PROVIDERS: ATTEND Family Medicine
DX: Z13.820 Encounter for screening for osteoporosis (principal); N95.9 Unspecified menopausal and perimenopausal disorder; M85.852 Other specified disorders of bone density and structure, left thigh
CPT/HCPCS: 77080

== ENCOUNTER 2021-06-16 18:58 | Inpatient (IN) | payer MEDICARE, OTHER ==
[~2021-06-16 18:58] MED LIST: Iopamidol-370 76% 500 ML 1 ML ONE
[2021-06-16] MEDS ORDERED: Labetalol HCl 100 MG/20 ML VIAL ONE (20:13)
[2021-06-16 20:26] LABS: #Eosinphils 0.3 thou/uL (0.0-0.7); #Lymphocytes 1.8 thou/uL (1.20-3.40); #Monocytes 1.2 thou/uL (0.11-0.59); #Neutrophils 10.1 thou/uL (1.40-6.50); %Basophils 0.2 % (0.0-1.0); %Lymphocytes 13.5 % (21.0-51.0); %Monocytes 8.6 % (0.0-10.0); %Neutrophils 75.6 % (42.0-75.0); Hemoglobin 15.3 g/dL (12.0-16.0); Mean Corpuscular HGB CONC 31.9 g/dL (32.0-36.0); Mean Corpuscular Hemoglobin 31.2 pg (27.0-31.0); Mean Corpuscular Volume 97.8 fL (78.0-98.0); Mean Platelet Volume 11.3 fL (7.4-10.4); Platelet Count 176 thou/uL (130-400); RBC Distribution Width 13.5 % (11.5-14.5); White Blood Cell (WBC) Count 13.4 thou/uL (4.8-10.8)
[2021-06-16] MEDS ORDERED: Acetaminophen 500 MG TAB ONE ×2 (20:26→20:27)
[2021-06-16] MEDS ORDERED: Ibuprofen 800 MG TAB ONE (20:26)
[2021-06-16] MEDS ORDERED: Metoclopramide HCl 10 MG/2 ML VIAL ONE (20:26)
[2021-06-16] MEDS ORDERED: niCARdipine 20MG In NaCl 20 MG/200 ML BAG ONE (20:46)
[2021-06-16 20:47] LABS: ALT (SGPT) 13 U/L (8-55); AST (SGOT) 18 U/L (5-34); Albumin 3.9 g/dL (3.4-4.8); Alkaline Phosphatase 117 U/L (40-110); Anion Gap 16 mmol/L (10-20); BUN (Urea Nitrogen) 21 mg/dL (9.8-20.1); Bilirubin, Total 0.5 mg/dL (0.2-1.2); Calc. Creatinine Clearance 0 mL/min (70-130); Calcium 9.3 mg/dL (7.8-10.44); Carbon Dioxide 24 mmol/L (23-31); Chloride 105 mmol/L (98-107); Globulin 3.9 g/dL (2.4-3.5); Glucose 90 mg/dL (83-110); Potassium 4.1 mmol/L (3.5-5.1); Protein, Total 7.8 g/dL (5.8-8.1); Sodium 141 mmol/L (136-145)
[2021-06-16 22:18] LABS: Troponin I 0.013 ng/mL (< 0.028)
[2021-06-16 22:32] LABS: SARS-CoV-2 NAA Rapid Test DETECTED (NotDetected)
[2021-06-17] MEDS ORDERED: niCARdipine 20MG In NaCl 20 MG/200 ML BAG ONE (00:12)
[2021-06-17 00:51] VITALS: BMI 27.8
[2021-06-17] MEDS ORDERED: Ondansetron ODT 4 MG TAB PO PRN (01:15)
[2021-06-17] MEDS ORDERED: Ondansetron PF 4 MG/2 ML Vial IVP PRN (01:15)
[2021-06-17] MEDS ORDERED: Acetaminophen 650 MG Suppository PR PRN (01:15)
[2021-06-17 01:58] LABS: Bacteria/HPF 1+ HPF (None Seen); Bilirubin Negative (Negative); Blood, Urine Negative (Negative); Clarity Clear (Clear); Glucose, Urine (Dipstick) Normal (Negative); Ketone, Urine Negative (Negative); Leukocyte 250 Leu/uL (Negative); Nitrite 2+ (Negative); Protein, Urine (Dipstick) 10 mg/dL (Neg-Trace); RBC/HPF 0-3 HPF (0-3); Specific Gravity, Urine 1.013 (1.002-1.036); Squamous Epithelial 0-3 HPF (0-3); Urobilinogen Normal mg/dL (Less than 2); pH, Urine 5.5 (5.0-9.0)
[2021-06-17 02:54] LABS: Troponin I 0.037 ng/mL (< 0.028)
[2021-06-17] MEDS: Enoxaparin Sodium 40 MG/0.4 ML SYRINGE SC SCH ×2 (03:09→15:13)
[2021-06-17] MEDS ORDERED: Amlodipine 5 MG TAB PO SCH ×2 (04:45→09:00)
[2021-06-17] MEDS: Hydrochlorothiazide 25 MG TAB PO SCH (05:25)
[2021-06-17 06:31] LABS: #Basophils 0.1 thou/uL (0.0-0.2); #Eosinphils 0.2 thou/uL (0.0-0.7); #Lymphocytes 2.4 thou/uL (1.20-3.40); #Monocytes 1.4 thou/uL (0.11-0.59); #Neutrophils 10.3 thou/uL (1.40-6.50); %Basophils 0.7 % (0.0-1.0); %Eosinophils 1.4 % (0.0-10.0); %Lymphocytes 16.6 % (21.0-51.0); %Monocytes 9.4 % (0.0-10.0); %Neutrophils 71.8 % (42.0-75.0); Mean Corpuscular HGB CONC 30.8 g/dL (32.0-36.0); Mean Corpuscular Hemoglobin 30.3 pg (27.0-31.0); Mean Corpuscular Volume 98.4 fL (78.0-98.0); Mean Platelet Volume 10.5 fL (7.4-10.4); Platelet Count 180 thou/uL (130-400); RBC Distribution Width 13.4 % (11.5-14.5); Red Blood Cell (RBC) Count 4.62 mill/uL (4.20-5.40); White Blood Cell (WBC) Count 14.3 thou/uL (4.8-10.8)
[2021-06-17] MEDS ORDERED: Diltiazem 125 MG in Sodium Chloride 0.9% 100 ML IVPB SCH (06:45)
[2021-06-17 06:52] LABS: Anion Gap 11 mmol/L (10-20); BUN (Urea Nitrogen) 19 mg/dL (9.8-20.1); Calc. Creatinine Clearance 49 mL/min (70-130); Calcium 8.9 mg/dL (7.8-10.44); Carbon Dioxide 27 mmol/L (23-31); Chloride 107 mmol/L (98-107); Glucose 100 mg/dL (83-110); Potassium 3.9 mmol/L (3.5-5.1); Sodium 141 mmol/L (136-145)
[2021-06-17] MEDS ORDERED: niCARdipine 25 MG in Sodium Chloride 0.9% 250 ML 250 ML IVPB SCH (07:00)
[2021-06-17] MEDS ORDERED: Bisacodyl 5 MG TAB PO PRN (07:36)
[2021-06-17] MEDS ORDERED: Loratadine 10 MG TAB PO PRN (07:36)
[2021-06-17] MEDS ORDERED: Loperamide HCl 2 MG CAP PO PRN (07:36)
[2021-06-17] MEDS ORDERED: Benzonatate 100 MG CAP PO PRN (07:36)
[2021-06-17] MEDS ORDERED: Artificial Tear Sol 15 ML BOT EA EYE PRN (07:36)
[2021-06-17] MEDS ORDERED: Senokot S 8.6-50 MG TAB PO PRN (07:36)
[2021-06-17] MEDS ORDERED: Cepastat Lozenges 1 LOZ PO PRN (07:36)
[2021-06-17] MEDS ORDERED: Calcium Carbonate 500 MG ChewTAB PO PRN (07:36)
[2021-06-17] MEDS ORDERED: Sodium Chloride 0.65% Nasal 44 ML BOT EA NARE PRN (07:36)
[2021-06-17] MEDS ORDERED: Zolpidem Tartrate 5 MG TAB PO PRN (07:36)
[2021-06-17] MEDS ORDERED: Hydrocerin (Eucerin) Cream 120 gm Jar TOP PRN (07:36)
[2021-06-17] MEDS ORDERED: GUAIFENESIN SF SOLN 200 MG/10 ML UDCUP PO PRN (07:36)
[2021-06-17] MEDS ORDERED: Losartan 25 MG TAB PO SCH ×2 (09:00)
[2021-06-17] MEDS ORDERED: NIFEdipine XL 30 MG TAB PO SCH (09:00)
[2021-06-17] MEDS ORDERED: Non-Formulary Item 1 EACH (Spironolactone [Spironolactone] 50 MG Tablet) PO SCH (09:00)
[2021-06-17] MEDS ORDERED: Hydrochlorothiazide 25 MG TAB PO SCH (09:00)
[2021-06-17] MEDS ORDERED: NIFEdipine XL 60 MG TAB PO SCH (09:15)
[2021-06-17] MEDS: Cholecalciferol (Vitamin D3) 400 UNITS TAB PO SCH (09:17)
[2021-06-17] MEDS: Zinc Sulfate 220 MG CAP PO SCH (09:17)
[2021-06-17] MEDS: Ascorbic Acid 500 mg Chewable Tablet PO SCH (09:17)
[2021-06-17] MEDS: Clopidogrel Bisulfate 75 MG TAB PO SCH (09:18)
[2021-06-17] MEDS: Multivitamin W/ Minerals 1 TAB PO SCH (09:18)
[2021-06-17] MEDS: Losartan 25 MG TAB PO SCH (09:18)
[2021-06-17] MEDS: hydrALAZINE 20 MG/ML VIAL SLOW IVP PRN (09:19)
[2021-06-17] MEDS ORDERED: Albuterol 200 PUFF (6.7GM INHALER) INH PRN (09:51)
[2021-06-17] MEDS: Vitamin E 400 UNITS CAP PO SCH (10:37)
[2021-06-17] MEDS: Cholecalciferol 1,000 UNITS (25 MCG) TAB PO SCH (10:37)
[2021-06-17] MEDS: HYDROcodone/Acetaminophen 5/325 mg Tablet PO PRN ×2 (11:47→17:35)
[2021-06-17] MEDS: Albuterol 200 PUFF (6.7GM INHALER) INH SCH ×2 (13:54→19:08)
[2021-06-17] MEDS: hydrALAZINE 25 MG TAB PO SCH ×3 (13:54→20:47)
[2021-06-17] MEDS: NIFEdipine XL 30 MG TAB PO SCH (20:48)
[2021-06-18] MEDS: Enoxaparin Sodium 40 MG/0.4 ML SYRINGE SC SCH ×2 (01:05→14:54)
[2021-06-18] MEDS: Albuterol 200 PUFF (6.7GM INHALER) INH SCH ×4 (01:16→21:12)
[2021-06-18] MEDS: Labetalol HCl 100 MG/20 ML VIAL SLOW IVP PRN (01:29)
[2021-06-18] MEDS: Acetaminophen 325 MG TAB PO PRN ×3 (01:33→21:12)
[2021-06-18 04:59] LABS: #Eosinphils 0.3 thou/uL (0.0-0.7); #Lymphocytes 1.9 thou/uL (1.20-3.40); #Monocytes 1.2 thou/uL (0.11-0.59); #Neutrophils 7.6 thou/uL (1.40-6.50); %Basophils 0.2 % (0.0-1.0); %Eosinophils 2.9 % (0.0-10.0); %Lymphocytes 17.4 % (21.0-51.0); %Monocytes 10.7 % (0.0-10.0); %Neutrophils 68.7 % (42.0-75.0); Hemoglobin 13.2 g/dL (12.0-16.0); Mean Corpuscular HGB CONC 31.6 g/dL (32.0-36.0); Mean Corpuscular Hemoglobin 31.2 pg (27.0-31.0); Mean Corpuscular Volume 98.8 fL (78.0-98.0); Mean Platelet Volume 10.5 fL (7.4-10.4); Platelet Count 182 thou/uL (130-400); RBC Distribution Width 13.4 % (11.5-14.5); Red Blood Cell (RBC) Count 4.23 mill/uL (4.20-5.40); White Blood Cell (WBC) Count 11.1 thou/uL (4.8-10.8)
[2021-06-18 05:17] LABS: ALT (SGPT) 9 U/L (8-55); AST (SGOT) 15 U/L (5-34); Albumin 3.1 g/dL (3.4-4.8); Alkaline Phosphatase 94 U/L (40-110); Anion Gap 10 mmol/L (10-20); BUN (Urea Nitrogen) 20 mg/dL (9.8-20.1); Bilirubin, Total 0.3 mg/dL (0.2-1.2); Calc. Creatinine Clearance 47 mL/min (70-130); Calcium 8.7 mg/dL (7.8-10.44); Carbon Dioxide 26 mmol/L (23-31); Chloride 106 mmol/L (98-107); Globulin 3.4 g/dL (2.4-3.5); Glucose 102 mg/dL (83-110); Phosphorus 2.1 mg/dL (2.3-4.7); Protein, Total 6.5 g/dL (5.8-8.1); Sodium 138 mmol/L (136-145)
[2021-06-18] MEDS ORDERED: PHOS-NAK 1 PKT PACK PO SCH (07:45)
[2021-06-18] MEDS: Hydrochlorothiazide 25 MG TAB PO SCH (08:56)
[2021-06-18] MEDS: NIFEdipine XL 30 MG TAB PO SCH ×2 (08:56→21:13)
[2021-06-18] MEDS: Ascorbic Acid 500 mg Chewable Tablet PO SCH (08:56)
[2021-06-18] MEDS: Clopidogrel Bisulfate 75 MG TAB PO SCH (08:56)
[2021-06-18] MEDS: Multivitamin W/ Minerals 1 TAB PO SCH (08:57)
[2021-06-18] MEDS: Zinc Sulfate 220 MG CAP PO SCH (08:57)
[2021-06-18] MEDS: Cholecalciferol 1,000 UNITS (25 MCG) TAB PO SCH (08:57)
[2021-06-18] MEDS: hydrALAZINE 25 MG TAB PO SCH ×4 (08:57→21:13)
[2021-06-18] MEDS: Vitamin E 400 UNITS CAP PO SCH (08:57)
[2021-06-18] MEDS: Losartan 25 MG TAB PO SCH (08:57)
[2021-06-18] MEDS: Cholecalciferol (Vitamin D3) 400 UNITS TAB PO SCH (08:57)
[2021-06-18] MEDS ORDERED: NIFEdipine XL 30 MG TAB PO SCH (09:00)
[2021-06-18] MEDS: Cefepime 1 GM in Sodium Chloride 0.9% 100 ML IVPB SCH ×2 (10:12→21:14)
[2021-06-18] MEDS: HYDROcodone/Acetaminophen 5/325 mg Tablet PO PRN (12:14)
[2021-06-18] MEDS: Mometasone 200 MCG/Formoterol 5 MCG 120 PUFF INHALER INH SCH (21:11)
[2021-06-18] MEDS: methylPREDNISolone Sod Succ/PF 125 MG/2 ML VIAL IVP SCH (21:14)
[2021-06-19] MEDS: Acetaminophen 325 MG TAB PO PRN ×3 (00:21→21:13)
[2021-06-19] MEDS: hydrALAZINE 20 MG/ML VIAL SLOW IVP PRN (00:54)
[2021-06-19] MEDS: Enoxaparin Sodium 40 MG/0.4 ML SYRINGE SC SCH ×3 (00:57→14:57)
[2021-06-19] MEDS: Albuterol 200 PUFF (6.7GM INHALER) INH SCH ×4 (01:25→18:29)
[2021-06-19] MEDS: Labetalol HCl 100 MG/20 ML VIAL SLOW IVP PRN (05:25)
[2021-06-19] MEDS: Mometasone 200 MCG/Formoterol 5 MCG 120 PUFF INHALER INH SCH ×2 (06:17→17:23)
[2021-06-19 06:19] LABS: Hemoglobin 13.7 g/dL (12.0-16.0); Mean Corpuscular HGB CONC 30.4 g/dL (32.0-36.0); Mean Corpuscular Hemoglobin 30.1 pg (27.0-31.0); Mean Corpuscular Volume 98.9 fL (78.0-98.0); Mean Platelet Volume 10.6 fL (7.4-10.4); Platelet Count 205 thou/uL (130-400); RBC Distribution Width 13.3 % (11.5-14.5); Red Blood Cell (RBC) Count 4.56 mill/uL (4.20-5.40)
[2021-06-19 06:32] LABS: Anion Gap 12 mmol/L (10-20); BUN (Urea Nitrogen) 23 mg/dL (9.8-20.1); Calc. Creatinine Clearance 43 mL/min (70-130); Calcium 9.4 mg/dL (7.8-10.44); Carbon Dioxide 27 mmol/L (23-31); Chloride 105 mmol/L (98-107); Glucose 170 mg/dL (83-110); Potassium 4.7 mmol/L (3.5-5.1); Sodium 139 mmol/L (136-145)
[2021-06-19] MEDS ORDERED: PHOS-NAK 1 PKT PACK PO SCH (07:00)
[2021-06-19 08:37] LABS: Band 8 % (5-11); Lymphocytes 7 % (21-51); MDiff Complete? YES; Monocytes 1 % (0-10); Neutrophil 84 % (42-75); Platelet Morphology Comment Appears Adequate; RBC Morphology Normal
[2021-06-19] MEDS: NIFEdipine XL 30 MG TAB PO SCH ×2 (09:21→21:15)
[2021-06-19] MEDS: Cholecalciferol (Vitamin D3) 400 UNITS TAB PO SCH (09:21)
[2021-06-19] MEDS: Losartan 25 MG TAB PO SCH (09:22)
[2021-06-19] MEDS: Vitamin E 400 UNITS CAP PO SCH (09:22)
[2021-06-19] MEDS: Ascorbic Acid 500 mg Chewable Tablet PO SCH (09:22)
[2021-06-19] MEDS: Zinc Sulfate 220 MG CAP PO SCH (09:22)
[2021-06-19] MEDS: Hydrochlorothiazide 25 MG TAB PO SCH (09:22)
[2021-06-19] MEDS: Clopidogrel Bisulfate 75 MG TAB PO SCH (09:22)
[2021-06-19] MEDS: Multivitamin W/ Minerals 1 TAB PO SCH (09:23)
[2021-06-19] MEDS: Cefepime 1 GM in Sodium Chloride 0.9% 100 ML IVPB SCH ×2 (09:23→21:14)
[2021-06-19] MEDS: methylPREDNISolone Sod Succ/PF 125 MG/2 ML VIAL IVP SCH ×2 (09:23→21:13)
[2021-06-19] MEDS: hydrALAZINE 25 MG TAB PO SCH ×4 (09:23→21:16)
[2021-06-19] MEDS: Cholecalciferol 1,000 UNITS (25 MCG) TAB PO SCH (09:28)
[2021-06-19] MEDS: Nitroglycerin 2% Ointment 1 INCH/1 GM Packet TOP SCH ×2 (12:17→21:15)
[2021-06-19] MEDS ORDERED: cloNIDine 0.1 MG TAB PO PRN (12:17)
[2021-06-19] MEDS ORDERED: Nicotine 21 MG PATCH TD SCH (12:30)
[2021-06-20] MEDS: Albuterol 200 PUFF (6.7GM INHALER) INH SCH ×2 (01:26→05:24)
[2021-06-20] MEDS: Enoxaparin Sodium 40 MG/0.4 ML SYRINGE SC SCH (03:26)
[2021-06-20] MEDS: hydrALAZINE 20 MG/ML VIAL SLOW IVP PRN (03:44)
[2021-06-20] MEDS: Mometasone 200 MCG/Formoterol 5 MCG 120 PUFF INHALER INH SCH (05:23)
[2021-06-20] MEDS: Nitroglycerin 2% Ointment 1 INCH/1 GM Packet TOP SCH (05:24)
[2021-06-20 06:47] LABS: Anion Gap 18 mmol/L (10-20); BUN (Urea Nitrogen) 28 mg/dL (9.8-20.1); Calc. Creatinine Clearance 41 mL/min (70-130); Calcium 9.1 mg/dL (7.8-10.44); Carbon Dioxide 19 mmol/L (23-31); Chloride 108 mmol/L (98-107); Glucose 194 mg/dL (83-110); Phosphorus 2.6 mg/dL (2.3-4.7); Potassium 5.1 mmol/L (3.5-5.1); Sodium 140 mmol/L (136-145)
[2021-06-20] MEDS ORDERED: Amlodipine 10 MG TAB PO SCH (09:15)
[2021-06-20] MEDS: Losartan 25 MG TAB PO SCH (09:37)
[2021-06-20] MEDS: Multivitamin W/ Minerals 1 TAB PO SCH (09:38)
[2021-06-20] MEDS: Cholecalciferol 1,000 UNITS (25 MCG) TAB PO SCH (09:38)
[2021-06-20] MEDS: Vitamin E 400 UNITS CAP PO SCH (09:38)
[2021-06-20] MEDS: Clopidogrel Bisulfate 75 MG TAB PO SCH ×2 (09:38→10:13)
[2021-06-20] MEDS: hydrALAZINE 25 MG TAB PO SCH (09:38)
[2021-06-20] MEDS: Zinc Sulfate 220 MG CAP PO SCH (09:38)
[2021-06-20] MEDS: Ascorbic Acid 500 mg Chewable Tablet PO SCH (09:38)
[2021-06-20] MEDS: NIFEdipine XL 30 MG TAB PO SCH (09:38)
[2021-06-20] MEDS: Cholecalciferol (Vitamin D3) 400 UNITS TAB PO SCH (09:43)
[2021-06-20] MEDS: Hydrochlorothiazide 25 MG TAB PO SCH (11:07)
[2021-06-20] MEDS: methylPREDNISolone Sod Succ/PF 125 MG/2 ML VIAL IVP SCH (11:07)
[2021-06-20 12:21] VITALS: BP 198/84; TEMP 98.5
[2021-06-20] MEDS ORDERED: Cefdinir 300 MG CAP PO SCH (21:00)
[2021-06-21] MEDS ORDERED: predniSONE 20 MG TAB PO SCH (08:00)
[2021-06-21] MEDS ORDERED: Amlodipine 10 MG TAB PO SCH (09:00)
== END 2021-06-20 12:21 | disposition home or self-care (01) | DRG 177 ==
LOC: ERS 18:58 → ERHOLD 22:36 → CCU 06-17 00:19 → 2SE 06-17 19:47
PROVIDERS: ADMIT Student in an Organized Health Care Education/Training Program; ATTEND Internal Medicine
PROC: 8E0ZXY6 Isolation (ICD-10-PCS; principal; 2021-06-16)
DX: U07.1 COVID-19 (principal); J12.82 Pneumonia due to coronavirus disease 2019; I21.A1 Myocardial infarction type 2; J96.90 Respiratory failure, unspecified, unspecified whether with hypoxia or hypercapnia; N17.9 Acute kidney failure, unspecified; I16.1 Hypertensive emergency; N30.00 Acute cystitis without hematuria; F17.210 Nicotine dependence, cigarettes, uncomplicated; I10 Essential (primary) hypertension; F41.9 Anxiety disorder, unspecified; F32.9 Major depressive disorder, single episode, unspecified; Z88.0 Allergy status to penicillin; Z79.899 Other long term (current) drug therapy; Z79.82 Long term (current) use of aspirin; Z90.710 Acquired absence of both cervix and uterus
CPT/HCPCS: 36415; 70450; 71045; 71275; 80048; 80053; 81003; 81015; 82728; 83735; 83880; 84100; 84484; 85025; 85379; 86140; 87070; 87077; 87086; 87186; 87205; 93005; 93010; 93306; 94640; J0360; J0692; J1650; J1956; J2765; J2930; J3490; J7050; J7620; Q9967; U0002

== ENCOUNTER 2024-02-24 10:26 | Outpatient (CLI) | payer MEDICAID, MEDICARE | END 2024-02-24 10:27 | disposition home or self-care (01) | LOC: BICMAMMO 10:26 | PROVIDERS: ATTEND Family Medicine | DX: Z13.820 Encounter for screening for osteoporosis (principal); Z12.2 Encounter for screening for malignant neoplasm of respiratory organs; F17.218 Nicotine dependence, cigarettes, with other nicotine-induced disorders; M85.89 Other specified disorders of bone density and structure, multiple sites; K44.9 Diaphragmatic hernia without obstruction or gangrene; J98.4 Other disorders of lung; Z78.0 Asymptomatic menopausal state | CPT/HCPCS: 71271; 77080 ==